=== PATIENT | female | born 1995 | race Two or more races ===

== ENCOUNTER → 2020-02-29 11:28 | Outpatient (BNVA) | payer OTHER, SELFPAY | PROVIDERS: PCP Internal Medicine; Referring Provider Internal Medicine; Visit Provider Advanced Practice Midwife | DX: Z30.09 Encounter for other general counseling and advice on contraception (principal) | CPT/HCPCS: 99212 ==

== ENCOUNTER 2020-03-09 10:28 | Outpatient (REF) | payer OTHER, SELFPAY | END 2020-03-09 10:29 | disposition home or self-care (01) | LOC: HO.LAB 10:28 | PROVIDERS: PCP Internal Medicine; Referring Provider Internal Medicine; Visit Provider Obstetrics & Gynecology | DX: R87.612 Low grade squamous intraepithelial lesion on cytologic smear of cervix (LGSIL) (principal) | CPT/HCPCS: 88305 ==

== ENCOUNTER 2020-03-11 17:01 | Emergency (ER) | payer OTHER, SELFPAY ==
[2020-03-11 19:37] VITALS: BP 129/64; PULSE 79; RESP 16; O2SAT 99; BMI 21.9
--- NOTE | 2020-03-11 19:46 | PC.NURSE ---
THIS RN AT BEDSIDE INDUSTRIAL MAINTENANCE MILLWRIGHT FOR PELVIC EXAM BY MARKUS BOGGS NP
[2020-03-11 20:00] VITALS: BP 114/63; PULSE 74; RESP 16; TEMP 36.6; O2SAT 100
[2020-03-11 20:08] LABS: Glucose Urine UA NEG (NEG); Leukocyte Esterase Urine NEG (NEG); Nitrite Urine NEG (NEG); Specific Gravity - Urine 1.025 (1.005-1.025); Urine Blood 2+ (NEG); Urine Ketones NEG (NEG); Urine Protein NEG (NEG-TRACE)
[2020-03-11 20:11] LABS: Appearance Urine CLEAR; Color Urine STRAW
[2020-03-11 20:12] LABS: UPreg QC Valid YES; Urine Pregnancy NEGATIVE (NEGATIVE)
[2020-03-11 20:22] LABS: WBC Urine 0 /HPF (0-4)
[2020-03-11 20:23] LABS: Squamous Epithelial Cell Urine 1+ /LPF
--- NOTE | 2020-03-11 20:25 | ED_ITS ---
HPI - Female Genitourinary General Chief complaint: OB <Ranjan Denny NP - Last Filed: 03/11/20 20:43> Stated complaint: VAGINAL ISSUES <Ranjan Denny NP - Last Filed: 03/11/20 20:43> Time Seen by Provider: 03/11/20 19:46 <Ranjan Denny NP - Last Filed: 03/11/20 20:43> Source: patient <Ranjan Denny NP - Last Filed: 03/11/20 20:43> Mode of arrival: ambulatory <Ranjan Denny NP - Last Filed: 03/11/20 20:43> Limitations: no limitations <Ranjan Denny NP - Last Filed: 03/11/20 20:43> History of Present Illness HPI Narrative: 25-year-old female who is status post Colposcopy on 03/09/2020 ( 2 days ago) for cervical lesions and yesterday she had episode of very slight disc harge x1 upon wiping. She <Ranjan Denny NP - Last Filed: 03/11/20 20:43> MD elicited complaint: vaginal discharge <Ranjan Denny NP - Last Filed: 03/11/20 20:43> Related Data Allergies/Adverse reactions: Allergies Allergy/AdvReac Type Severity Reaction Status Date / Time Penicillins [PENICILLINS] Allergy Intermediate RASH AND Verified 03/09/20 10:35 VOMITING <Ranjan Denny NP - Last Filed: 03/11/20 20:43> Review of Systems Review of Systems: Constitutional: No Weight loss, No Fever, No Chills, No Night Sweats, No Fatigue, No Malaise ENT/Mouth: No Hearing loss, No Ear Pain, No Nasal Congestion, No Sinus Pain, No Hoarseness, No sore throat, No Rhinorrhea, No Swallowing Difficulty Eyes: No Eye Pain, No Swelling, No Redness, No Foreign Body, No Discharge, No Vision Changes Cardiovascular: No Chest Pain, No SOB, No Dyspnea on Exertion, No Orthopnea, No Edema, No Palpitations Respiratory: No Cough, No Sputum, No Wheezing, No Smoke Exposure, No Dyspnea Gastrointestinal: No Nausea, No Vomiting, No Diarrhea, No Constipation, No abdominal Pain, No Hematochezia, No Melena Genitourinary: no irregular bleeding, No Dysuria, No Urinary Frequency, No Hematuria, No Urinary Incontinence, No Urgency, No Flank Pain, No Urinary Flow Changes, No Hesitancy Musculoskeletal: No joint pain, No Myalgias, No Joint Swelling Skin: No Skin Lesions, No rash Neuro: No Weakness, No Numbness, No Paresthesias, No Loss of Consciousness, No Dizziness, No Headache Psych: No Social Issues Heme/Lymph: No Bruising, No Bleeding,No Lymphadenopathy Endocrine: No Polyuria, No Polydipsia, No Temperature Intolerance <Ranjan Denny NP - Last Filed: 03/11/20 20:43> Yes all other systems are reviewed and are negative <Ranjan Denny NP - Last Filed: 03/11/20 20:43> PMF Past Medical History Attestation statement: The following information was validated with the patient. <Ranjan Denny NP - Last Filed: 03/11/20 20:43> Surgical History: Surgical History Hx of appendectomy <Ranjan Denny NP - Last Filed: 03/11/20 20:43> Family History Family History: Family History Father History of back problems History of depression History of anxiety Mother Hx of hepatitis Hx of pancreatitis History of mental problems Maternal Grandmother Hx of diabetes mellitus Family hx of hypertension Family/Other Hx of cancer of uterus <Ranjan Denny NP - Last Filed: 03/11/20 20:43> Social History Social History: Social History Alcohol intake: never Smoking Status: Never smoker Advance Directives: No Advance Directives Information Provided: Yes Gender identity: female <Ranjan Denny NP - Last Filed: 03/11/20 20:43> Physical Exam Vital Signs: Vital Signs: Vital Signs Temp Pulse Resp BP Pulse Ox 03/11/20 20:00 97.8 F 74 16 114/63 100 03/11/20 19:37 79 16 129/64 99 Body Mass Index 21.9 Reviewed <Ranjan Denny NP - Last Filed: 03/11/20 20:43> Vital Signs: Vital Signs Temp Pulse Resp BP Pulse Ox 03/11/20 20:00 97.8 F 74 16 114/63 100 03/11/20 19:37 79 16 129/64 99 Body Mass Index 21.9 <Ramesh Sosa MD - Last Filed: 03/12/20 00:32> Const: General: cooperative and healthy appearing; No acute distress or intoxicated appearing <[facility] DAVE Denny - Last Filed: 03/11/20 20:43> Nutritional Appearance: average body habitus <[facility] DAVE Denny - Last Filed: 03/11/20 20:43> Orientation/consciousness: patient oriented x3 <[facility] Denisha - Last Filed: 03/11/20 20:43> HENMT: Head: Yes normal to inspection <[facility] DAVE Denny - Last Filed: 03/11/20 20:43> Ears: hearing grossly normal bilaterally <[facility] Denisha - Last Filed: 03/11/20 20:43> Eyes: General: appearance normal, both eyes and all related structures <Aby Denny NP - Last Filed: 03/11/20 20:43> Visual Lozada: normal visual lozada by confrontation <[facility] Denisha [employer] SUPERVIS[employer] - Last Filed: 03/11/20 20:43> Neck: Neck: Yes normal visual inspection and No tender <[facility] DAVE Denny - Last Filed: 03/11/20 20:43> Thyroid: Thyroid normal <[facility] Denisha [employer] SUPERVISOR - Last Filed: 03/11/20 20:43> Chest: Chest palpation & inspection: normal inspection of the chest <[facility] DAVE Denny - Last Filed: 03/11/20 20:43> Resp: Effort & Inspection: normal respiratory effort <[facility] DAVE Denny - Last Filed: 03/11/20 20:43> Cardio: Jugular venous distension: no JVD <[facility] DAVE Denny - Last Filed: 03/11/20 20:43> GI: Inspection: Yes normal to inspection <[facility] DAVE Denny - Last Filed: 03/11/20 20:43> Percussion: Yes normal to percussion <[facility] DAVE Denny - Last Filed: 03/11/20 20:43> Auscultation: normal bowel sounds <[facility] DAVE Denny - Last Filed: 03/11/20 20:43> : Other: tamanna Gomez RN present <[facility] DAVE Denny - Last Filed: 03/11/20 20:43> General: Yes no CVA tenderness <[facility] DAVE Denny - Last Filed: 03/11/20 20:43> External Female Exam: normal external appearance <[facility] Denisha [employer] SUPERVISOR - Last Filed: 03/11/20 20:43> Speculum Exam - Vagina: normal appearance of the vagina, normal palpation, normal vaginal discharge and lesion <[facility] DAVE Denny - Last Filed: 03/11/20 20:43> Speculum Exam - Cervix: normal appearance of the cervix and normal palpation <[facility] DAVE Denny - Last Filed: 03/11/20 20:43> Bimanual exam- vagina & uterus: normal palpation and normal palpation <[facility] Denisha [employer] SUPERVISOR - Last Filed: 03/11/20 20:43> Back/Spine/Pelvis: Back: no CVA tenderness <[facility] DAVE Denny - Last Filed: 03/11/20 20:43> Skin: General skin exam: no rashes or lesions noted <[facility] DAVE Denny - Last Filed: 03/11/20 20:43> Neuro: General: patient oriented x3 <[facility] DAVE Denny - Last Filed: 03/11/20 20:43> Extrem: General: Yes normal to inspection <[facility] DAVE Denny - Last Filed: 03/11/20 20:43> Course Course Course Narrative: I have reviewed the chart <Ramesh Sosa MD - Last Filed: 03/12/20 00:32> MDM - Female Genitourinary MDM Narrative Medical decision making narrative: slight discharge consistent with dry blood anticipated after biopsy. Vaginal bowl examination reveals no further discharge or bleeding. UA reveals no acute infection. Next negative. No concern for STI. Referred to her case loader operator. Reassurance/precautions provided. No evidence of infectious pathology/PID. <[facility] DAVE Denny - Last Filed: 03/11/20 20:43> Differential Diagnosis Differential diagnosis: Likely urinary tract infection, bacterial vaginosis, trichomoniasis, cervicitis and vaginitis; Unlikely ovarian cyst, ruptured ovarian cyst, cyst of Bartholin's gland, cystitis and dysmenorrhea <Ranjan Denny NP - Last Filed: 03/11/20 20:43> Medical Records Attestation: I reviewed the patient's medical records. <Ranjan Denny NP - Last Filed: 03/11/20 20:43> Medical records narrative: office note reviewed from the 27 of February when she was started on Depo Office note reviewed from the where she had biopsy <Ranjan Denny NP - Last Filed: 03/11/20 20:43> Lab Data Labs: Lab Results 03/11/20 Range/Units 19:50 Urine Color STRAW Urine Appearance CLEAR Urine pH 6.0 (5.0-8.0) Ur Specific [place] 1.025 (1.005-1.025) Urine Protein NEG (NEG-TRACE) MG/DL Urine Glucose (UA) NEG (NEG) MG/DL Urine Ketones NEG (NEG) MG/DL Urine Blood 2+ H (NEG) Urine Nitrite NEG (NEG) Ur Leukocyte Esterase NEG (NEG) Urine RBC 15-29 H (0) /HPF Urine WBC 0 (0-4) /HPF Ur Squamous Epith Cells 1+ /LPF Urine Bacteria NONE /LPF Urine Test NEGATIVE (NEGATIVE) <Ranjan Denny NP - Last Filed: 03/11/20 20:43> Lab Results 03/11/20 Range/Units 19:50 Urine Color STRAW Urine Appearance CLEAR Urine pH 6.0 (5.0-8.0) Ur Specific [place] 1.025 (1.005-1.025) Urine Protein NEG (NEG-TRACE) MG/DL Urine Glucose (UA) NEG (NEG) MG/DL Urine Ketones NEG (NEG) MG/DL Urine Blood 2+ H (NEG) Urine Nitrite NEG (NEG) Ur Leukocyte Esterase NEG (NEG) Urine RBC 15-29 H (0) /HPF Urine WBC 0 (0-4) /HPF Ur Squamous Epith Cells 1+ /LPF Urine Bacteria NONE /LPF Urine Test NEGATIVE (NEGATIVE) <Ramesh Sosa MD - Last Filed: 03/12/20 00:32> Discharge Plan Discharge Clinical Impression: Vaginal discharge <Ranjan Denny NP - Last Filed: 03/11/20 20:43> Patient Disposition: Home, Self-Care <Ranjan Denny NP - Last Filed: 03/11/20 20:43> Instructions: Vaginal Discharge (ED) <Ranjan Denny NP - Last Filed: 03/11/20 20:43> Additional Instructions: the 1 episode of discharge you had was normal and very small amount of blood that is to be expected after biopsy. On examination there is no more discharge. Please continue to follow-up with the case loader operator team. return if any concerns or worsening symptoms Thank you <Ranjan Denny NP - Last Filed: 03/11/20 20:43> Referrals: Fede Branch MD [Physician] - 1 week <Ranjan Denny NP - Last Filed: 03/11/20 20:43> Interventions: ED Discharge Assessment Last Done: 03/11/20 20:45 <Ranjan Denny NP - Last Filed: 03/11/20 20:43> Discharge Date/Time: 03/11/20 20:45 <Ranjan Denny NP - Last Filed: 03/11/20 20:43>
--- NOTE | 2020-03-11 20:38 | PC.NURSE ---
NEGATIVE WORKUP, PT AWAITING DC HOME.
== END 2020-03-11 20:45 | disposition home or self-care (01) ==
PROVIDERS: Nurse Practitioner Primary Care; Emergency Provider Emergency Medicine; PCP Internal Medicine
DX: N89.8 Other specified noninflammatory disorders of vagina (principal)
CPT/HCPCS: 81001; 81003; 81025; 99283; 99284

== ENCOUNTER 2020-03-24 14:51 | Outpatient (REF) | payer OTHER, SELFPAY ==
[2020-03-25 09:00] LABS: CT PCR NOT DETECTED (Not Detect.); NG PCR NOT DETECTED (Not Detect.)
[2020-03-25 10:34] LABS: BV Int Neg Control Negative (Negative); BV Int Pos Control Positive (Positive)
== END 2020-03-24 14:52 | disposition home or self-care (01) ==
LOC: HO.LAB 14:51
PROVIDERS: Visit Provider Obstetrics & Gynecology
DX: N73.0 Acute parametritis and pelvic cellulitis (principal); N89.8 Other specified noninflammatory disorders of vagina; R10.2 Pelvic and perineal pain
CPT/HCPCS: 81002; 81025; 87480; 87491; 87510; 87591; 87660; 99212

== ENCOUNTER 2020-04-06 14:26 | Outpatient (REF) | payer OTHER, SELFPAY ==
[2020-04-07 08:19] LABS: BV Int Neg Control Negative (Negative); BV Int Pos Control Positive (Positive)
== END 2020-04-06 14:27 | disposition home or self-care (01) ==
LOC: HO.LNP 14:26
PROVIDERS: Visit Provider Obstetrics & Gynecology
DX: B37.3 Candidiasis of vulva and vagina (principal); N73.0 Acute parametritis and pelvic cellulitis
CPT/HCPCS: 87480; 87510; 87660; 99212

== ENCOUNTER → 2020-05-30 09:35 | Outpatient (BNVA) | payer OTHER, SELFPAY | PROVIDERS: Visit Provider Obstetrics & Gynecology | DX: Z30.09 Encounter for other general counseling and advice on contraception (principal) | CPT/HCPCS: 99212 ==

== ENCOUNTER 2020-09-15 10:21 | Outpatient (REF) | payer OTHER, SELFPAY ==
[2020-09-15 15:20] LABS: CT PCR NOT DETECTED (Not Detect.); NG PCR NOT DETECTED (Not Detect.)
[2020-09-16 08:52] LABS: BV Int Neg Control Negative (Negative); BV Int Pos Control Positive (Positive)
== END 2020-09-15 10:22 | disposition home or self-care (01) ==
LOC: HO.LAB 10:21
PROVIDERS: PCP Internal Medicine; Visit Provider Obstetrics & Gynecology
DX: N76.0 Acute vaginitis (principal); R10.2 Pelvic and perineal pain; B96.89 Other specified bacterial agents as the cause of diseases classified elsewhere; Z30.9 Encounter for contraceptive management, unspecified
CPT/HCPCS: 87480; 87491; 87510; 87591; 87660; 99212

== ENCOUNTER 2020-09-26 13:05 | Outpatient (REF) | payer OTHER, SELFPAY ==
--- NOTE | ~2020-09-26 | US_ITS ---
EXAMINATION: US PELVIS COMPLETE CLINICAL INFORMATION: Pelvic and perineal pain. COMPARISON: None. TECHNIQUE: Transabdominal imaging of pelvis is performed. FINDINGS: The uterus is anteverted and anteflexed measuring 7.7 cm in length, 3.6 cm in AP and 4.4 cm in transverse dimension. No focal lesions seen. The endometrium is homogeneous in thickness measuring 0.7 cm. Right ovary measures 3.6 x 2.4 x 1.9 cm and volume 8.6 mL. It appears unremarkable. Left ovary measures 3.2 x 2.5 x 1.7 cm and volume 7.1 mL. It appears unremarkable. There is trace amount of free fluid in the cul-de-sac. US/US transvaginal IMPRESSION: Unremarkable uterus and ovaries. Trace free fluid in the cul-de-sac.
--- NOTE | ~2020-09-26 | US_ITS ---
EXAMINATION: US PELVIS COMPLETE CLINICAL INFORMATION: Pelvic and perineal pain. COMPARISON: None. TECHNIQUE: Transabdominal imaging of pelvis is performed. FINDINGS: The uterus is anteverted and anteflexed measuring 7.7 cm in length, 3.6 cm in AP and 4.4 cm in transverse dimension. No focal lesions seen. The endometrium is homogeneous in thickness measuring 0.7 cm. Right ovary measures 3.6 x 2.4 x 1.9 cm and volume 8.6 mL. It appears unremarkable. Left ovary measures 3.2 x 2.5 x 1.7 cm and volume 7.1 mL. It appears unremarkable. There is trace amount of free fluid in the cul-de-sac. US/US pelvic complete IMPRESSION: Unremarkable uterus and ovaries. Trace free fluid in the cul-de-sac.
== END 2020-09-26 13:06 | disposition home or self-care (01) ==
LOC: HO.US 13:05
PROVIDERS: Visit Provider Obstetrics & Gynecology
DX: R10.2 Pelvic and perineal pain (principal)
CPT/HCPCS: 76830; 76856

== ENCOUNTER → 2020-10-03 13:49 | Outpatient (BNVA) | payer OTHER, SELFPAY | PROVIDERS: PCP Internal Medicine; Visit Provider Obstetrics & Gynecology ==

== ENCOUNTER 2020-11-16 17:42 | Emergency (ER) | payer OTHER, SELFPAY ==
[2020-11-16 17:58] VITALS: BP 126/67; PULSE 96; RESP 18; TEMP 36.7; O2SAT 99; BMI 23.7
[2020-11-16] MEDS: Tranexamic Acid 1,000 MG in 0.9 % Sodium Chloride 50 ML 360 MG IV (18:47)
--- NOTE | 2020-11-16 18:47 | ED_ITS ---
HPI - General Adult General Chief complaint: General Medical Stated complaint: Post Op bleeding Time Seen by Provider: 11/16/20 18:14 Source: patient, family and life [employer] Mode of arrival: ambulatory Limitations: language barrier History of Present Illness HPI narrative: 25-year-old female here with dental bleeding. The patient had 3 wisdom teeth removed this morning at 11:00 at [facility] dental [facility] emil[facility]. She is here as 1 site has continued to bleed despite holding pressure. She denies any history of bleeding disorders. No anticoagulation use. Related Data Previous Rx's Medication Instructions Recorded clotrimazole-betamethasone 1 1 applic TOPICAL BID 5 Days #45 g 04/06/20 %-0.05 % topical cream terconazole 0.8 % vaginal cream 1 appful VAGINAL BEDTIME 3 Days 04/06/20 #20 g naproxen 500 mg tablet 500 mg PO ONCE PRN 30 Days #7 tab 05/31/20 sumatriptan succinate 50 mg tablet 50 mg PO ONCE PRN 30 Days #7 tab 05/31/20 cyclobenzaprine 5 mg tablet 5 mg PO BEDTIME 7 Days #7 tab 07/05/20 desogestrel 0.15 mg-ethinyl 1 tab PO DAILY 28 Days #28 tab 09/15/20 estradiol 0.03 mg tablet metronidazole 0.75 % vaginal gel 1 appful VAGINAL BEDTIME 5 Days 09/15/20 #37.5 g Allergies Allergy/AdvReac Type Severity Reaction Status Date / Time Penicillins [PENICILLINS] Allergy Intermediate RASH AND Verified 10/03/20 13:55 VOMITING Review of Systems Review of Systems: Yes all other systems are reviewed and are negative Constitutional: Constitutional: Reports no additional constitutional complaint s, Denies body ache(s), Denies chills, Denies fever(s), Denies headache(s) and Denies weakness Eyes: Eyes: Reports no additional eye complaints and Denies change in vision ENT: Reports system reviewed and no additional complaints, except as documented, Denies dizziness, Denies headache(s), Denies nasal congestion, Denies nasal discharge and Denies neck pain Comments: Dental bleeding Cardiovascular: Cardiovascular: Reports no additional cardiovascular complaints, Denies chest pain, Denies leg edema and Denies dyspnea Respiratory: Respiratory: Reports no additional respiratory complaints, Denies cough and Denies dyspnea Gastrointestinal: Gastrointestinal: Reports no additional gastrointestinal complaints, Denies abdominal pain, Denies diarrhea, Denies nausea and Denies vomiting Genitourinary: Genitourinary: Reports no additional female genitourinary complaints and Denies urinary incontinence Musculoskeletal: Musculoskeletal: Reports no additional musculoskeletal complaints, Denies back pain, Denies arthralgias, Denies joint swelling, Denies neck pain, Denies numbness and Denies tingling Integumentary/Breasts: Skin/Breast: Reports system reviewed and no additional complaints, except as docu and Denies rash Neurologic: Reports system reviewed and no additional complaints, except as documented, Denies Abnormal speech present, Denies dizziness, Denies headache(s), Denies numbness, Denies tingling and Denies weakness PMFSH Past Medical History Attestation statement: The following information was validated with the patient. Source: old records reviewed and nursing notes reviewed Surgical History Hx of appendectomy [place] teeth extracted Family History Family History Father History of back problems History of depression History of anxiety Mother Hx of hepatitis Hx of pancreatitis History of mental problems Maternal Grandmother Hx of diabetes mellitus Family hx of hypertension Family/Other Hx of cancer of uterus Social History Social History Alcohol intake: never Patient Tobacco Use Status: Never used Tobacco Advance Directives: No Advance Directives Information Provided: Yes Patient : No Sexual orientation: Straight/Heterosexual Gender identity: female Physical Exam Vital Signs: Vital Signs: Last Vital Signs Temp 98.4 F 11/16/20 21:50 Pulse 79 11/16/20 21:50 Resp 16 11/16/20 21:50 BP 120/73 11/16/20 21:50 Pulse Ox 99 11/16/20 21:50 Body Mass Index 23.7 Const: General: cooperative, healthy appearing, comfortable and no acute distress Orientation/consciousness: patient oriented x3 Limitations: no limitations HENMT: Head: Yes normal to inspection Ears: hearing grossly normal bilaterally General nose exam: Normal external nose present Face and sinu s: Yes normal facial exam Mouth: Normal oral and palatal mucosa present Teeth image: 1. Sutures noted no active bleeding 2. Sutures noted not active bleeding 3. Sutures noted. Large blood clot with active bleeding noted Throat: Yes posterior oropharynx normal Eyes: General: appearance normal, both eyes and all related structures Pupils: Equal, round and reactive pupils present Neck: Neck: Yes normal visual inspection Chest: Chest palpation & inspection: normal inspection of the chest Resp: Effort & Inspection: normal respiratory effort Auscultation: clear to auscultation bilaterally Cardio: Rate: regular rate Rhythm: regular rhythm Peripheral pulses: Peripheral pulses 2+ throughout GI: Inspection: Yes normal to inspection Palpation (GI): Soft to palpation and nontender Auscultation: normal bowel sounds Back/Spine/Pelvis: Thoracic/Lumbar Spine: thoracic and lumbar spine normal to inspection Skin: General skin exam: no rashes or lesions noted Neuro: General: patient oriented x3, no focal motor deficits and normal sensation to monofilament Cranial nerves: Yes Equal, round and reactive pupils present Cognition (Neuro): normal cognition Speech: No Abnormal speech present Gait exam (Neuro): Normal gait present Motor exam (neuro): 5/5 motor strength present throughout Extrem: General: Yes normal to inspection Course Course Course Narrative: 25-year-old female here with bleeding from her wisdom tooth extraction site to the left upper gum line after excision today at 11:00. Bleeding noted from a large blood clot at this site with sutures present. TXA applied with direct pressure after clot was evacuated. -30 minutes later after re-evaluation continued bleeding. TXA reapplied to site. -30 minutes later re-evaluation with Dr. Amezcua at bedside with continued bleeding although improving. TXA reapplied. -30 minutes later re-evaluation with Dr. Amezcua the bedside with continued bleeding although improving. dental hem con applied to site with surgicel over this with direct pressure. -30 minutes later re-evaluation with Dr. Amezcua the bedside with no active bleeding noted. Will monitor in the ER for brief time prior to discharge. -re-evaluated patient approximately 20 minutes later with no active bleeding. After discussion with Dr. Amezcua decision was made to keep the current dressing in place and have the patient follow up with the dental clinic in the morning. Reviewed worrisome signs and symptoms and when to return to the emergency department. Comfortable discharge home. Critical Care Time Critical Care Time Critical Care Time: Yes Total Critical Care Time: 60 Attestation: Multiple re-evaluations for bleeding site with interventions applied Discharge Plan Discharge Clinical Impression: Surgical wound hemorrhage after dental procedure Patient Disposition: Home, Self-Care Instructions: Postoperative Bleeding (ED) Additional Instructions: Small sips only tonight Sleep with head prepped You need to see dental tomorrow morning first thing Prescriptions: No Action cyclobenzaprine 5 mg tablet 5 mg PO BEDTIME 7 Days Qty: 7 RF: 0 sumatriptan succinate 50 mg tablet 50 mg PO ONCE PRN (Reason: migraine headache) 30 Days Qty: 7 RF: 0 naproxen 500 mg tablet 500 mg PO ONCE PRN (Reason: pain) 30 Days Qty: 7 RF: 0 terconazole 0.8 % cream 1 appful vaginal BEDTIME 3 Days Qty: 20 RF: 0 clotrimazole-betamethasone 1-0.05 % cream 1 applic topical BID 5 Days Qty: 45 RF: 0 metronidazole 0.75 % gel 1 appful vaginal BEDTIME 5 Days Qty: 37.5 RF: 0 desogestrel-ethinyl estradiol [Apri] 0.15-0.03 mg tablet 1 tab PO DAILY 28 Days Qty: 28 RF: 11 Referrals: Physician,Unknown [Primary Care Provider] - 2 days Interventions: ED Discharge Assessment Last Done: 11/16/20 22:30 Discharge Date/Time: 11/16/20 22:31 Print Language: Romansh
[2020-11-16 19:32] VITALS: BP 121/65; PULSE 78; RESP 16; O2SAT 99
--- NOTE | 2020-11-16 19:40 | PC.NURSE ---
REPORT TAKEN FROM TEJA WOODS, FIRST CONTACT WITH PT. SITTING UP IN BED SKIN PWD RESPIRATIONS EVEN UNLABORED, TSA SOAKED GAUZE IN MOUTH. BLEEDING APPEARS TO HAVE SLOWED. VSS. AWAITING IMPROVEMENT IN SYMPTOMS AND ACID CONCENTRATOR REEVAL.
[2020-11-16] MEDS: Morphine Sulfate 2 MG/ML CARTRIDGE IM (19:47)
[2020-11-16 20:17] VITALS: BP 120/77; PULSE 72; RESP 16; TEMP 36.6; O2SAT 98
[2020-11-16 21:50] VITALS: BP 120/73; PULSE 79; RESP 16; TEMP 36.9; O2SAT 99
== END 2020-11-16 22:31 | disposition home or self-care (01) ==
PROVIDERS: Emergency Provider Emergency Medicine
DX: K91.840 Postprocedural hemorrhage of a digestive system organ or structure following a digestive system procedure (principal); Y83.8 Other surgical procedures as the cause of abnormal reaction of the patient, or of later complication, without mention of misadventure at the time of the procedure; Y92.9 Unspecified place or not applicable
CPT/HCPCS: 96372; 96374; 99284; J2270

== ENCOUNTER 2020-11-20 10:42 | Emergency (ER) | payer OTHER, SELFPAY ==
[2020-11-20 10:53] VITALS: BP 130/70; PULSE 107; RESP 17; TEMP 36.8; O2SAT 96; BMI 18.8
--- NOTE | 2020-11-20 11:18 | ED.GENADULT ---
HPI - General Adult General Chief complaint: General Medical Stated complaint: MOUTH SWOLLEN DENTAL ISSUES WEAK Time Seen by Provider: 11/20/20 11:00 Source: patient and family Mode of arrival: ambulatory Limitations: no limitations History of Present Illness HPI narrative: 25 y/o female with recent wisdom tooth extraction on 11/16 who presents to the ER with poor PO intake, headache, nausea and ongoing right sided jaw/mouth pain. She has not been able to eat since the procedure. She feels dehydrated. She states the pain is slowly improving and she has been compliant with her antibiotics and taking Motrin as needed. She denies vomiting, fever, chills, or recurrent bleeding. She was seen here in the ER a few hours after the extraction on 11/16 and required multiple rounds of topical TXA for active bleeding. MD complaint: mouth pain + dehydration Onset (ago): day(s) (4) Location: head and face Radiation: non-radiation Severity: moderate Severity scale (1-10): 6 Quality: aching Pain Consistency: constant Relieving factors: cold therapy and medication Exacerbating factors: eating Associated symptoms: loss of appetite, malaise, nausea/vomiting and weakness Treatments prior to arrival: none Related Data Previous Rx's Medication Instructions Recorded clotrimazole-betamethasone 1 1 applic TOPICAL BID 5 Days #45 g 04/06/20 %-0.05 % topical cream terconazole 0.8 % vaginal cream 1 appful VAGINAL BEDTIME 3 Days 04/06/20 #20 g naproxen 500 mg tablet 500 mg PO ONCE PRN 30 Days #7 tab 05/31/20 sumatriptan succinate 50 mg tablet 50 mg PO ONCE PRN 30 Days #7 tab 05/31/20 cyclobenzaprine 5 mg tablet 5 mg PO BEDTIME 7 Days #7 tab 07/05/20 desogestrel 0.15 mg-ethinyl 1 tab PO DAILY 28 Days #28 tab 09/15/20 estradiol 0.03 mg tablet metronidazole 0.75 % vaginal gel 1 appful VAGINAL BEDTIME 5 Days 09/15/20 #37.5 g Allergies Allergy/AdvReac Type Severity Reaction Status Date / Time Penicillins [PENICILLINS] Allergy Intermediate RASH AND Verified 10/03/20 13:55 VOMITING Review of Systems Review of Systems: Constitutional: No Fever, No Chills ENT/Mouth: No sore throat, No Rhinorrhea, + Swallowing Difficulty Cardiovascular: No Chest Pain, No SOB, No Orthopnea, No Edema Respiratory: No Cough, No Sputum, No Wheezing, No dyspnea Gastrointestinal: No Nausea, No Vomiting, No Diarrhea, No abdominal Pain, No Hematochezia, No Melena Genitourinary: No Dysuria, No Urinary Frequency, No Hematuria Musculoskeletal: No joint pain, No Myalgias Skin: No Skin Lesions, No rash Neuro: No Weakness, No Numbness, No Dizziness, No Headache Psych: No Anxiety/Panic, No Depression Heme/Lymph: No Bruising, No Lymphadenopathy Endocrine: No Polyuria, No Polydipsia PMFSH Past Medical History Surgical History Hx of appendectomy [place] teeth extracted Family History Family History Father History of back problems History of depression History of anxiety Mother Hx of hepatitis Hx of pancreatitis History of mental problems Maternal Grandmother Hx of diabetes mellitus Family hx of hypertension Family/Other Hx of cancer of uterus Social History Social History Alcohol intake: never Patient Tobacco Use Status: Never used Tobacco Advance Directives: No Advance Directives Information Provided: No Patient : No Sexual orientation: Straight/Heterosexual Gender identity: female Physical Exam Vital Signs: Vital Signs: Last Vital Signs Temp 98.2 F 11/20/20 10:53 Pulse 107 H 11/20/20 10:53 Resp 17 11/20/20 10:53 BP 130/70 11/20/20 10:53 Pulse Ox 96 11/20/20 10:53 Body Mass Index 18.8 Appearance: Alert. Oriented X3. No acute distress. Head/face: right facial and mandibular swelling, moderate, no erythema. Eyes: Pupils equal, round and reactive to light. ENT: pain with opening of jaw, no active bleeding, sites are healing appropriately Neck: Normal inspection. no LAD CVS: Normal heart rate and rhythm. Pulses normal. Respiratory: No respiratory distress. Breath sounds normal. Abdomen: Soft and nontender. +BS x4 Skin: Skin warm and dry. Normal skin color. Normal skin turgor. No rashes. Extremities: No lower extremity edema. Neuro: Oriented X 3. No motor deficit. No sensory deficit. Course Course Course Narrative: 25 y/o female presenting POD #4 from wisdom tooth extraction with poor PO intake, headache, nausea and continued pain. She is concerned about dehydration and asking for IVF. She has been drinking adequately but unable to eat. Will check basic labs to assess for dehydration and give IVF and Toradol, did not take her Motrin yet today. Reevaluation(s) Reevaluation #1: Labs are unremarkable. Patient is feeling better s/p 2L IVF and toradol. Having ice chips. She is stable for d/c home. Medical Decision Making Lab Data Result diagrams: 11/20/20 11:22 11/20/20 11:22 Labs: Lab Results 11/20/20 11/20/20 Range/Units 11:22 11:22 WBC 8.5 (4.8-10.8) X10*3/uL RBC 4.90 (4.20-5.50) X10*6/uL Hgb 13.9 (12.0-16.0) g/dl Hct 40.5 (37-47) % MCV 82.7 (80-98) fL MCH 28.4 (27.0-33.0) pg MCHC 34.3 (31.0-35.0) g/dl RDW 12.5 (11.0-16.0) % Plt Count 462 H (160-400) X10*3/uL MPV 9.5 (9.4-12.3) fL Immature Gran % (Auto) 0.4 (0.0-0.4) % Neut % (Auto) 80.6 H (45-73) % Lymph % (Auto) 12.7 L (20-40) % [place] % (Auto) 5.7 (2-11) % Eos % (Auto) 0.2 (0-4) % Baso % (Auto) 0.4 (0-2) % Lymph # (Auto) 1.1 L (1.2-4.9) X10*3/uL [place] # (Auto) 0.5 (0.1-1.2) X10*3/uL Eos # (Auto) 0.0 (0.0-0.4) X10*3/uL Baso # (Auto) 0.0 (0.0-0.2) X10*3/uL Abs Immat Gran (auto) 0.03 (0.00-0.03) X10*3/uL Absolute Neuts (auto) 6.8 (2.0-8.3) X10*3/uL Absolute Nucleated RBC 0.000 (0.0-0.012) X10*3/uL Nucleated RBC % (auto) 0.0 (0.0-0.2) /100WBC Sodium 140 (135-145) mmol/L Potassium 4.0 (3.3-5.1) mmol/L Chloride 102 (96-108) mmol/L Carbon Dioxide 28 (22-29) mmol/L Anion Gap 14 (12-20) BUN 13 (9-16) mg/dL Creatinine 0.67 (0.5-1.4) mg/dL Estim Creat Clear Calc 101.9 Estimated GFR > 60 Random Glucose 86 (60-115) mg/dL Calcium 9.4 (8.4-10.2) mg/dL Discharge Plan Discharge Clinical Impression: [place] teeth extracted Qualifiers: Tooth loss class: unspecified tooth loss Qualified Code(s): K08.409 - Partial loss of teeth, unspecified cause, unspecified class Patient Disposition: Home, Self-Care Instructions: Tooth Extraction (DC) Additional Instructions: Your lab workup today was normal, no evidence of dehydration. Continue taking Motrin as needed for pain. Use ice to your face/jaw several times per day. Continue to drink liquids to stay hydrated. Recommend trial of soft foods as well. Follow up with your dentist. If you have worsening pain or any other concerning symptoms come back to the ER for further evaluation. Prescriptions: No Action cyclobenzaprine 5 mg tablet 5 mg PO BEDTIME 7 Days Qty: 7 RF: 0 sumatriptan succinate 50 mg tablet 50 mg PO ONCE PRN (Reason: migraine headache) 30 Days Qty: 7 RF: 0 naproxen 500 mg tablet 500 mg PO ONCE PRN (Reason: pain) 30 Days Qty: 7 RF: 0 terconazole 0.8 % cream 1 appful vaginal BEDTIME 3 Days Qty: 20 RF: 0 clotrimazole-betamethasone 1-0.05 % cream 1 applic topical BID 5 Days Qty: 45 RF: 0 metronidazole 0.75 % gel 1 appful vaginal BEDTIME 5 Days Qty: 37.5 RF: 0 desogestrel-ethinyl estradiol [Apri] 0.15-0.03 mg tablet 1 tab PO DAILY 28 Days Qty: 28 RF: 11
[2020-11-20] MEDS: 0.9 % Sodium Chloride 1,000 ML 999 ML IVCONT ×2 (11:23→12:15)
[2020-11-20] MEDS: Ketorolac Tromethamine 30 MG/ML VIAL IVPUSH (11:26)
[2020-11-20] MEDS: ondansetron HCL 4 MG/2 ML VIAL IVPUSH (11:26)
[2020-11-20 11:27] LABS: MANUAL DIFF FLAG NO
[2020-11-20 11:31] LABS: Basophils Percent Auto 0.4 % (0-2); Eosinophils Percent Auto 0.2 % (0-4); Hematocrit 40.5 % (37-47); Hemoglobin 13.9 g/dl (12.0-16.0); Imm Gran Abs Auto 0.03 X10*3/uL (0.00-0.03); Imm Gran Pct Auto 0.4 % (0.0-0.4); Lymphocytes Absolute Auto 1.1 X10*3/uL (1.2-4.9); Lymphocytes Percent Auto 12.7 % (20-40); Mean Corpuscular HGB Conc 34.3 g/dl (31.0-35.0); Mean Corpuscular Hemoglobin 28.4 pg (27.0-33.0); Mean Corpuscular Volume 82.7 fL (80-98); Mean Platelet Volume 9.5 fL (9.4-12.3); Monocytes Absolute Auto 0.5 X10*3/uL (0.1-1.2); Monocytes Percent Auto 5.7 % (2-11); Neutrophils Absolute Auto 6.8 X10*3/uL (2.0-8.3); Neutrophils Percent Auto 80.6 % (45-73); Platelet Count 462 X10*3/uL (160-400); Red Cell Distribution Width 12.5 % (11.0-16.0); White Blood Count 8.5 X10*3/uL (4.8-10.8)
[2020-11-20 11:54] LABS: Anion Gap 14 (12-20); Blood Urea Nitrogen 13 mg/dL (9-16); Calcium 9.4 mg/dL (8.4-10.2); Carbon Dioxide 28 mmol/L (22-29); Chloride 102 mmol/L (96-108); Creatinine Clr Calc Pharmacy 101.9; Estimated Glomerular Filt Rate > 60; Glucose Random 86 mg/dL (60-115); Sodium 140 mmol/L (135-145)
[2020-11-20 13:18] VITALS: RESP 17
== END 2020-11-20 13:36 | disposition home or self-care (01) ==
PROVIDERS: Physician Assistant; Emergency Provider Emergency Medicine; PCP Internal Medicine
DX: K08.409 Partial loss of teeth, unspecified cause, unspecified class (principal)
CPT/HCPCS: 36415; 80048; 85025; 96361; 96374; 96375; 99283; 99284; J1885; J2405

== ENCOUNTER 2021-03-27 09:47 | Outpatient (REF) | payer OTHER, SELFPAY ==
[2021-03-27 14:38] LABS: CT PCR NOT DETECTED (Not Detect.); NG PCR NOT DETECTED (Not Detect.)
== END 2021-03-27 09:48 | disposition home or self-care (01) ==
LOC: HO.LAB 09:47
PROVIDERS: PCP Internal Medicine; Visit Provider Obstetrics & Gynecology
DX: Z01.411 Encounter for gynecological examination (general) (routine) with abnormal findings (principal); Z11.3 Encounter for screening for infections with a predominantly sexual mode of transmission; R87.612 Low grade squamous intraepithelial lesion on cytologic smear of cervix (LGSIL)
CPT/HCPCS: 87491; 87591; 88142

== ENCOUNTER 2021-06-22 11:11 | Outpatient (REF) | payer OTHER, SELFPAY ==
[2021-06-22 13:45] LABS: MANUAL DIFF FLAG NO
[2021-06-22 13:48] LABS: Basophils Percent Auto 0.4 % (0-2); Eosinophils Percent Auto 0.6 % (0-4); Hematocrit 38.9 % (37.0-47.0); Imm Gran Abs Auto 0.03 X10*3/uL (0.00-0.03); Imm Gran Pct Auto 0.4 % (0.0-0.4); Lymphocytes Absolute Auto 1.8 X10*3/uL (1.2-4.9); Lymphocytes Percent Auto 25.8 % (20-40); Mean Corpuscular HGB Conc 33.4 g/dl (31.0-35.0); Mean Corpuscular Volume 83.8 fL (80.0-98.0); Mean Platelet Volume 10.7 fL (9.4-12.3); Monocytes Absolute Auto 0.4 X10*3/uL (0.1-1.2); Monocytes Percent Auto 5.2 % (2-11); Neutrophils Absolute Auto 4.6 x10*3/uL (2.0-8.3); Neutrophils Percent Auto 67.6 % (45-73); Platelet Count 487 X10*3/uL (160-400); Red Blood Count 4.64 X10*6/uL (4.20-5.50); Red Cell Distribution Width 13.2 % (11.0-16.0); White Blood Count 6.8 X10*3/uL (4.8-10.8)
[2021-06-22 14:17] LABS: Alanine Aminotransferase 12 U/L (0-31); Albumin Level 4.3 g/dL (3.5-5.0); Alkaline Phosphatase 84 U/L (39-117); Anion Gap 9 (12-20); Aspartate Amino Transferase 14 U/L (5-31); Bilirubin Total 0.4 mg/dL (0.0-1.0); Blood Urea Nitrogen 12 mg/dL (9-16); Calcium 9.5 mg/dL (8.4-10.2); Carbon Dioxide 30 mmol/L (22-29); Chloride 104 mmol/L (96-108); Cholesterol 214 mg/dL; Estimated Glomerular Filt Rate > 60; Glucose Fasting 92 mg/dL (60-99); HDL Cholesterol 44 mg/dL; LDL Cholesterol Calculated 148 mg/dl; Potassium 4.7 mmol/L (3.3-5.1); Sodium 138 mmol/L (135-145); Total Protein 7.4 g/dL (6.5-8.0); Triglycerides 113 mg/dL
[2021-06-22 14:21] LABS: TSH reflex Free T4 0.42 uIU/mL (0.32-4.0)
[2021-06-27 14:12] LABS: Vitamin D 25-OH, D2 <4 ng/mL; Vitamin D 25-OH, D3 25 ng/mL; Vitamin D 25-OH, Total 25 ng/mL (30-100)
== END 2021-06-22 11:12 | disposition home or self-care (01) ==
LOC: HO.HMGCLDS 11:11
PROVIDERS: Visit Provider Internal Medicine
DX: R10.13 Epigastric pain (principal); M54.9 Dorsalgia, unspecified
CPT/HCPCS: 36415; 80053; 80061; 82306; 84443; 85025

== ENCOUNTER 2021-07-20 13:00 | Outpatient (RCR) | payer OTHER, SELFPAY ==
--- NOTE | 2021-06-27 14:19 | MHC.PT.EP ---
[facility] [place] [facility] [address] Chris Holguin [address] [phone] F: [phone] F: [phone] F: [phone] F: [phone] Physical Therapy Plan of Care Date of Evaluation: Date of Surgery: n/a Diagnosis: dorsalgia Assessment: Patient is a 26 year old female presenting to PT with complaints of pain in her back. Pt reports onset of pain began worsening 2 weeks ago due to insidious onset. She presents today with impairments in pain, lumbar AROM, cervical AROM, increase paraspinal tissue density, hip strength, core strength, posture, and DNF strength. Pt's current occupation is none, with baseline physical activities including ADLs, bending, lifting, caring for 1 year old, and stair negotiation. 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 Clinical presentation today is most consistent with signs and sx associated with back pain that is likely myofascial in nature and pt will benefit from skilled PT to address the following problems and impairments noted upon evaluation: pain, lumbar AROM, cervical AROM, increase paraspinal tissue density, hip strength, core strength, posture, and DNF strength. These problems limit the patient with the following functional activities: ADLs, bending, lifting, and stair negotiation. The prescribed treatment plan of care is medically necessary. Co-morbidities of none were identified and taken into considerations of plan of care. Pt was educated on HEP, role of PT, prognosis, POC. Frequency and Duration: The patient will be seen 2 x week x 4 weeks Short Term Goals: Pt will demonstrate lumbar AROM in available range with min to no pain in 2 weeks. Pt will demonstrate cervical AROM in available range with min to no pain in 2 weeks. Pt will demonstrate improved hip strength by 1/3 MMT for improved lumbopelvic stability in 2 weeks. Pt will demonstrate ability to perform PPT with good TA recruitment in 2 weeks for improved core strength. Pt will be able to perform chin tuck with good DNF recruitment in 2 weeks. Pt will demonstrate improved postural awareness by sitting with biomechanically correct posture without cues throughout session to improve overall postural function in 2 weeks. 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 Pt will demonstrate ability to negotiate stairs with min to no pain in 4 weeks for improved access to her home. Pt will demonstrate ability to lift her child with min to no pain in 4 weeks for improved role as a mother. Pt will demonstrate less than 10% disability on the [place] in 4 weeks for improved overall functional mobility. Treatment Plan: Modalities to reduce pain, spasms and effusion. Manual therapy to restore motion and function. Therapeutic exercise to improve strength and flexibility. Neuromuscular re-education for posture and balance. Therapeutic activities to return to functional activities of daily living. Electronically signed by: Terri Le, PT, DPT, ATC Please sign and return to therapist. Thank you for your referral.
--- NOTE | 2021-08-15 09:23 | MHC.PT.DC ---
[facility] [place] Office [place] Office [place] Office [address] Chris Holguin [address] [phone] F: [phone] F: [phone] F: [phone] F: [phone] Physical Therapy Discharge Report Diagnosis: dorsalgia Date of Surgery: n/a Date of Evaluation: 06/27/21 Date of Discharge: 08/15/21 Treatments to Date: 4 Cancellations to Date: 5 No Shows to Date: 3 Discharge Status: Visit Non-compliance Discharge Summary: Pt failed to comply with [facility] attendance policy and no showed her last 3 appointments. Pt status currently unknown at this time. Electronically signed by: Terri Le, PT, DPT, ATC Please sign and return to therapist. Thank you for your referral.
== END 2021-08-15 09:23 | disposition home or self-care (01) ==
LOC: HO.PTCHIC 13:00
PROVIDERS: PCP Internal Medicine; Visit Provider Internal Medicine
DX: M54.9 Dorsalgia, unspecified (principal)
CPT/HCPCS: 97110; 97140; 97161

== ENCOUNTER 2021-07-28 13:22 | Emergency (ER) | payer OTHER, SELFPAY ==
[2021-07-28 13:47] VITALS: BP 111/62; PULSE 90; RESP 16; TEMP 37.1; O2SAT 99; BMI 24.9
[2021-07-28 14:12] LABS: MANUAL DIFF FLAG NO
[2021-07-28 14:14] LABS: Appearance Urine CLEAR; Color Urine STRAW; Glucose Urine UA NEG (NEG); Leukocyte Esterase Urine TRACE (NEG); Nitrite Urine NEG (NEG); Specific Gravity - Urine <= 1.005 (1.005-1.025); UACC Culture Trigger YES; Urine Blood NEG (NEG); Urine Ketones NEG (NEG); Urine Protein NEG (NEG-TRACE)
[2021-07-28 14:15] LABS: Basophils Percent Auto 0.4 % (0-2); Eosinophils Absolute Auto 0.1 X10*3/uL (0.0-0.4); Eosinophils Percent Auto 0.6 % (0-4); Hematocrit 39.9 % (37.0-47.0); Hemoglobin 13.2 g/dl (12.0-16.0); Imm Gran Abs Auto 0.05 X10*3/uL (0.00-0.03); Imm Gran Pct Auto 0.4 % (0.0-0.4); Lymphocytes Absolute Auto 1.6 X10*3/uL (1.2-4.9); Lymphocytes Percent Auto 14.6 % (20-40); Mean Corpuscular HGB Conc 33.1 g/dl (31.0-35.0); Mean Corpuscular Hemoglobin 27.8 pg (27.0-33.0); Monocytes Absolute Auto 0.7 X10*3/uL (0.1-1.2); Monocytes Percent Auto 6.5 % (2-11); Neutrophils Absolute Auto 8.7 x10*3/uL (2.0-8.3); Neutrophils Percent Auto 77.5 % (45-73); Platelet Count 456 X10*3/uL (160-400); Red Blood Count 4.75 X10*6/uL (4.20-5.50); Red Cell Distribution Width 13.2 % (11.0-16.0); UPreg QC Valid YES; Urine Pregnancy NEGATIVE (NEGATIVE); White Blood Count 11.2 X10*3/uL (4.8-10.8)
[2021-07-28 14:27] LABS: Bacteria Urine 2+ /LPF; Mucus Urine 1+ /LPF; RBC Urine 0 /HPF (0); Squamous Epithelial Cell Urine 2+ /LPF
[2021-07-28 14:31] LABS: Alanine Aminotransferase 9 U/L (0-31); Albumin Level 4.5 g/dL (3.5-5.0); Alkaline Phosphatase 89 U/L (39-117); Anion Gap 8 (12-20); Aspartate Amino Transferase 13 U/L (5-31); Bilirubin Direct 0.2 mg/dL (0.0-0.5); Bilirubin Total 0.5 mg/dL (0.0-1.0); Blood Urea Nitrogen 11 mg/dL (9-16); Calcium 9.9 mg/dL (8.4-10.2); Carbon Dioxide 32 mmol/L (22-29); Chloride 102 mmol/L (96-108); Creatinine Clr Calc Pharmacy 109.9; Estimated Glomerular Filt Rate > 60; Glucose Random 78 mg/dL (60-115); Lipase 32 U/L (8-78); Potassium 4.1 mmol/L (3.3-5.1); Sodium 138 mmol/L (135-145); Total Protein 7.6 g/dL (6.5-8.0)
--- NOTE | 2021-07-28 17:38 | ED.ABDPAIN ---
HPI - Abdominal Pain General Chief Complaint: Abdominal Pain Stated Complaint: abd pain Time Seen by Provider: 07/28/21 16:42 Source: patient Mode of arrival: ambulatory Limitations: language barrier (Estonian speaking only, power washer used) History of Present Illness HPI narrative: 26-year-old female who presents emergency department for evaluation of abdominal pain, nausea, loss of appetite, weakness and fatigue. The patient states that yesterday morning at 04:00 hours she developed abdominal pain. She points to her epigastric area when asked to localize the pain. She states the pain is been intermittent and describes the pain as a ?hard pain ?. The pain is intermittent and is 8 to 9/10 at its worst. She states that the pain is worse after eating food especially food with median it. She states she has had similar pain in the past and takes omeprazole 40 mg once a day. She states she has been compliant with his medication. She states that the pain is occasionally relieved if she drinks angela micah and eats crackers. She states that she has been feeling weak and fatigued since onset of the pain. She states that she has a GI appointment on 08/17/2021. She denied fever. She states over the past 1-2 days she has had rhinorrhea, sore throat, cough, chest pain and shortness of breath. She has associated nausea but no vomiting. She has had no diarrhea. Her last bowel movement was 2 days prior. MD elicited complaint: abdominal pain Pertinent past history: gastritis Onset (ago): day(s) (2) Pain Consistency: intermittent Location: epigastric Severity: severe Pain scale (0-10): 9 Quality: aching Radiation: none Migration to: no migration Exacerbating factors: eating (Food with meat) Relieving factors: other (Crackers, angela) Associated symptoms: nausea Treatments prior to arrival: other (Omeprazole 40 mg daily) Related Data Patient : No Previous Rx's Medication Instructions Recorded omeprazole 40 mg capsule,delayed 40 mg PO ONCE 90 Days #90 cap 06/23/21 release cholecalciferol (vitamin D3) 50 50 mcg PO DAILY 90 Days #90 cap 07/12/21 mcg (2,000 unit) capsule aluminum hydrox-magnesium carb 254 10 ml PO QID PRN #355 ml 07/28/21 mg-237.5 mg/5 mL oral suspension (Gaviscon Extra Strength) Allergies Allergy/AdvReac Type Severity Reaction Status Date / Time Penicillins [PENICILLINS] Allergy Intermediate RASH AND Verified 07/28/21 13:57 VOMITING Review of Systems Review of Systems Yes all other systems are reviewed and are negative [facility] Past Medical History [facility] Narrative: Past medical history: Gastritis, constipation, PID, headaches, past surgical history: Appendectomy. Social history: She denies tobacco, alcohol and drug use. Medical History LGSIL (low grade squamous intraepithelial dysplasia) Surgical History Hx of appendectomy [place] teeth extracted Family History Family History Father History of back problems History of depression History of anxiety Mother Hx of hepatitis Hx of pancreatitis History of mental problems Maternal Grandmother Hx of diabetes mellitus Family hx of hypertension Family/Other Hx of cancer of uterus Social History Social History Housing: Apartment Alcohol intake: never Patient Tobacco Use Status: Never used Tobacco Advance Directives: No Advance Directives Information Provided: No Patient : No Current occupational status: unemployed Sexual orientation: Straight/Heterosexual Gender identity: Female Physical Exam ED Vital Signs: Vital Signs - 24 hr 07/28/21 13:47 Temperature 98.8 F Pulse Rate 90 Respiratory Rate 16 Blood Pressure 111/62 Pulse Oximetry 99 BMI result Body Mass Index 24.9 Const General: cooperative and no acute distress Orientation/consciousness: oriented to person and oriented to place Limitations: no limitations [facility] Head: Yes normal to inspection, Yes normocephalic and Yes atraumatic Ears: external ears normal General nose exam: Normal external nose present Face and sinus: Yes normal facial exam Mouth: Normal oral and palatal mucosa present Throat: Yes posterior oropharynx normal Eyes General: appearance normal, both eyes and all related structures Pupils: Equal, round and reactive pupils present Neck Neck: Yes normal visual inspection, Yes no lymphadenopathy, Yes trachea midline and Yes supple Chest Chest palpation & inspection: normal inspection of the chest and normal palpation of entire chest wall Resp Effort & Inspection: normal respiratory effort and able to speak in complete sentences Auscultation: clear to auscultation bilaterally Cardio Rate: regular rate Rhythm: regular rhythm Heart sounds: S1 normal heart sound present, S2 normal heart sound present and no murmurs GI Inspection: Yes normal to inspection Palpation (GI): Soft to palpation, Tenderness to palpation present (GI) in the epigastrum (Moderate tenderness) and no guarding Auscultation: normal bowel sounds General: Yes no CVA tenderness Back/Spine/Pelvis Back: no CVA tenderness Skin General skin exam: no rashes or lesions noted Neuro General: oriented to person and oriented to place Cranial nerves: Yes CN's II-XII intact bilaterally and Yes Equal, round and reactive pupils present Cognition (Neuro): normal cognition Motor exam (neuro): 5/5 motor strength present throughout Extrem General: Yes normal to inspection Psych Appearance: grossly normal Speech and movement: Normal speech and movement present Affect: normal affect Attitude: cooperative Thought process: Normal thought process present Thought content: Normal thought content present Course Course Course Narrative: 26-year-old female has history of gastritis taking omeprazole 40 mg daily who presents emergency department for evaluation of intermittent epigastric pain that began yesterday morning at 04:00 hours. She had associated nausea, sore throat, cough, shortness of breath dyspnea on exertion. She also has associated fatigue and weakness. Vital signs were normal. Physical examination revealed midepigastric tenderness. Exam was otherwise unremarkable. Laboratory evaluation: CBC revealed an elevated WBC 49515, elevated platelet count of 006001. CMP revealed an elevated CO2 of 32. Lipase was normal at 32. Urinalysis/microscopic was not significant. Urine test was negative. Patient's presentation is consistent with gastritis. She was advised to continue taking omeprazole. She was started on Gaviscon 3 times a day to see if this improves her pain. She was advised to follow-up with PCP in our [facility]. MDM - Abdominal Pain Lab Data Result diagrams: 07/28/21 14:07 07/28/21 14:07 Labs: Lab Results 07/28/21 07/28/21 07/28/21 Range/Units 14:07 14:07 14:07 WBC 11.2 H (4.8-10.8) X10*3/uL RBC 4.75 (4.20-5.50) X10*6/uL Hgb 13.2 (12.0-16.0) g/dl Hct 39.9 (37.0-47.0) % MCV 84.0 (80.0-98.0) fL MCH 27.8 (27.0-33.0) pg MCHC 33.1 (31.0-35.0) g/dl RDW 13.2 (11.0-16.0) % Plt Count 456 H (160-400) X10*3/uL MPV 10.0 (9.4-12.3) fL Immature Gran % (Auto) 0.4 (0.0-0.4) % Neut % (Auto) 77.5 H (45-73) % Lymph % (Auto) 14.6 L (20-40) % [place] % (Auto) 6.5 (2-11) % Eos % (Auto) 0.6 (0-4) % Baso % (Auto) 0.4 (0-2) % Lymph # (Auto) 1.6 (1.2-4.9) X10*3/uL [place] # (Auto) 0.7 (0.1-1.2) X10*3/uL Eos # (Auto) 0.1 (0.0-0.4) X10*3/uL Baso # (Auto) 0.0 (0.0-0.2) X10*3/uL Abs Immat Gran (auto) 0.05 H (0.00-0.03) X10*3/uL Absolute Neuts (auto) 8.7 H (2.0-8.3) x10*3/uL Absolute Nucleated RBC 0.000 (0.0-0.012) X10*3/uL Nucleated RBC % (auto) 0.0 (0.0-0.2) /100WBC Sodium 138 (135-145) mmol/L Potassium 4.1 (3.3-5.1) mmol/L Chloride 102 (96-108) mmol/L Carbon Dioxide 32 H (22-29) mmol/L Anion Gap 8 L (12-20) BUN 11 (9-16) mg/dL Creatinine 0.73 (0.5-1.4) mg/dL Estim Creat Clear Calc 109.9 Estimated GFR > 60 Random Glucose 78 (60-115) mg/dL Calcium 9.9 (8.4-10.2) mg/dL Total Bilirubin 0.5 (0.0-1.0) mg/dL Direct Bilirubin 0.2 (0.0-0.5) mg/dL AST 13 (5-31) U/L ALT 9 (0-31) U/L Alkaline Phosphatase 89 (39-117) U/L Total Protein 7.6 (6.5-8.0) g/dL Albumin 4.5 (3.5-5.0) g/dL Lipase 32 (8-78) U/L Urine Color STRAW Urine Appearance CLEAR Urine pH 7.0 (5.0-8.0) Ur Specific [place] <= 1.005 (1.005-1.025) Urine Protein NEG (NEG-TRACE) MG/DL Urine Glucose (UA) NEG (NEG) MG/DL Urine Ketones NEG (NEG) MG/DL Urine Blood NEG (NEG) Urine Nitrite NEG (NEG) Ur Leukocyte Esterase TRACE H (NEG) Urine RBC 0 (0) /HPF Urine WBC 5-9 H (0-4) /HPF Ur Squamous Epith Cells 2+ /LPF Urine Bacteria 2+ /LPF Urine Mucus 1+ /LPF Urine Test (NEGATIVE) 07/28/21 Range/Units 14:07 WBC (4.8-10.8) X10*3/uL RBC (4.20-5.50) X10*6/uL Hgb (12.0-16.0) g/dl Hct (37.0-47.0) % MCV (80.0-98.0) fL MCH (27.0-33.0) pg MCHC (31.0-35.0) g/dl RDW (11.0-16.0) % Plt Count (160-400) X10*3/uL MPV (9.4-12.3) fL Immature Gran % (Auto) (0.0-0.4) % Neut % (Auto) (45-73) % Lymph % (Auto) (20-40) % [place] % (Auto) (2-11) % Eos % (Auto) (0-4) % Baso % (Auto) (0-2) % Lymph # (Auto) (1.2-4.9) X10*3/uL [place] # (Auto) (0.1-1.2) X10*3/uL Eos # (Auto) (0.0-0.4) X10*3/uL Baso # (Auto) (0.0-0.2) X10*3/uL Abs Immat Gran (auto) (0.00-0.03) X10*3/uL Absolute Neuts (auto) (2.0-8.3) x10*3/uL Absolute Nucleated RBC (0.0-0.012) X10*3/uL Nucleated RBC % (auto) (0.0-0.2) /100WBC Sodium (135-145) mmol/L Potassium (3.3-5.1) mmol/L Chloride (96-108) mmol/L Carbon Dioxide (22-29) mmol/L Anion Gap (12-20) BUN (9-16) mg/dL Creatinine (0.5-1.4) mg/dL Estim Creat Clear Calc Estimated GFR Random Glucose (60-115) mg/dL Calcium (8.4-10.2) mg/dL Total Bilirubin (0.0-1.0) mg/dL Direct Bilirubin (0.0-0.5) mg/dL AST (5-31) U/L ALT (0-31) U/L Alkaline Phosphatase (39-117) U/L Total Protein (6.5-8.0) g/dL Albumin (3.5-5.0) g/dL Lipase (8-78) U/L Urine Color Urine Appearance Urine pH (5.0-8.0) Ur Specific [place] (1.005-1.025) Urine Protein (NEG-TRACE) MG/DL Urine Glucose (UA) (NEG) MG/DL Urine Ketones (NEG) MG/DL Urine Blood (NEG) Urine Nitrite (NEG) Ur Leukocyte Esterase (NEG) Urine RBC (0) /HPF Urine WBC (0-4) /HPF Ur Squamous Epith Cells /LPF Urine Bacteria /LPF Urine Mucus /LPF Urine Test NEGATIVE (NEGATIVE) Discharge Plan Discharge Clinical Impression: Gastritis Patient Disposition: Home, Self-Care Instructions: Gastritis (ED) Additional Instructions: Your blood work today was normal. Your liver tests were normal. Your pancreas tests were normal. Your examination and symptoms are consistent with inflammation of your stomach secondary to too much acid (gastritis). Continue taking your omeprazole as prescribed by your doctor. Take Gaviscon extra-strength, 10 mL(2 tsp) 4 times a day for the next 2 days then as needed for abdominal pain. Follow-up with your doctor in 2 days. Please return to the emergency department if your symptoms get worse or if you develop any symptoms that are concerning to you. Prescriptions: New Gaviscon Extra Strength 254-237.5 mg/5 mL suspension 10 ml PO QID PRN (Reason: dyspepsia) Qty: 355 0RF No Action omeprazole 40 mg capsule,delayed release(DR/EC) 40 mg PO ONCE 90 Days Qty: 90 0RF cholecalciferol (vitamin D3) 50 mcg (2,000 unit) capsule 50 mcg PO DAILY 90 Days Qty: 90 1RF Print Language: Estonian
[2021-07-28 17:56] VITALS: BP 106/63; PULSE 80; RESP 16; O2SAT 97
== END 2021-07-28 18:24 | disposition home or self-care (01) ==
PROVIDERS: Emergency Provider Emergency Medicine Emergency Medical Services; PCP Internal Medicine
DX: K29.70 Gastritis, unspecified, without bleeding (principal); R10.13 Epigastric pain; Z79.899 Other long term (current) drug therapy
CPT/HCPCS: 36415; 80048; 80076; 81001; 81025; 83690; 85025; 87086; 87088; 87186; 99283; 99284

== ENCOUNTER 2021-08-17 11:49 | Outpatient (REF) | payer OTHER, SELFPAY ==
[2021-08-17 14:47] LABS: C Reactive Protein 0.38 mg/dL (< or = 0.50)
[2021-08-18 22:32] LABS: Gliadin Deamidated IgA Ab <1.0 U/mL; Gliadin Deamidated IgG Ab <1.0 U/mL; Transglutaminase Ab IgG <1.0 U/mL; Transglutaminase IgA <1.0 U/mL
== END 2021-08-17 11:50 | disposition home or self-care (01) ==
LOC: HO.LAB 11:49
PROVIDERS: PCP Internal Medicine; Referring Provider Internal Medicine; Visit Provider Nurse Practitioner
DX: R10.13 Epigastric pain (principal); R10.9 Unspecified abdominal pain
CPT/HCPCS: 36415; 86140; 86258; 86364; 99202

== ENCOUNTER 2021-08-18 12:21 | Outpatient (REF) | payer OTHER, SELFPAY | END 2021-08-18 12:22 | disposition home or self-care (01) | LOC: HO.LNP 12:21 | PROVIDERS: Visit Provider Nurse Practitioner | DX: R10.13 Epigastric pain (principal) | CPT/HCPCS: 87338 ==

== ENCOUNTER 2021-09-01 13:08 | Outpatient (REF) | payer OTHER, SELFPAY ==
--- NOTE | ~2021-09-01 | US_ITS ---
EXAMINATION: US ABDOMEN COMPLETE CLINICAL INFORMATION: Epigastric pain. COMPARISON: None TECHNIQUE: Real-time imaging of the abdominal viscera. FINDINGS: PANCREAS: Normal. ABDOMINAL AORTA: The proximal, mid, and distal segments are normal in caliber. INFERIOR VENA CAVA: Visualized portions are normal. LIVER: Normal. The liver is normal in size. The liver contour is normal. Parenchymal echogenicity is normal. No focal hepatic lesion. There is no intrahepatic biliary duct dilatation seen. GALLBLADDER: Normal. The gallbladder is physiologically distended without evidence of stones, sludge, polyps, wall thickening or pericholecystic fluid. COMMON BILE DUCT: Normal in caliber measuring 0.24 cm in diameter. RIGHT KIDNEY: Normal. No hydronephrosis. No renal calculi or focal parenchymal lesions. The kidney measures 10.1 cm in maximum dimension. LEFT KIDNEY: Normal. No hydronephrosis. No renal calculi or focal parenchymal lesions. The kidney measures 10.0 cm in maximum dimension. SPLEEN: Normal. The spleen measures 8.9 cm in maximum dimension. FREE FLUID: None. US/US abdomen complete IMPRESSION: Normal abdominal ultrasound.
== END 2021-09-01 13:09 | disposition home or self-care (01) ==
LOC: HO.US 13:08
PROVIDERS: Visit Provider Nurse Practitioner
DX: R10.13 Epigastric pain (principal)
CPT/HCPCS: 76700

== ENCOUNTER 2021-09-10 12:13 | Emergency (ER) | payer OTHER, SELFPAY ==
[2021-09-10 12:43] VITALS: BP 117/70; PULSE 93; RESP 18; TEMP 36.4; O2SAT 99; BMI 24.3
[2021-09-10 15:24] LABS: COVID-19 Test Negative (Negative)
[2021-09-10 15:25] LABS: IDNOW Serial# 16C4AD1C; Influenza A Negative (Negative); Influenza B2 Negative (Negative)
[2021-09-10 15:39] LABS: Strep A Nucleic Acid Negative (Negative)
--- NOTE | 2021-09-10 15:55 | ED.URI ---
HPI - URI/Sore Throat General Chief Complaint: Upper Respiratory Symptoms Stated Complaint: DIFF BREATHING COUGH CHEST PAIN Time Seen by Provider: 09/10/21 15:40 Source: patient Mode of arrival: ambulatory Limitations: no limitations History of Present Illness HPI Narrative: 26-year-old female presents with upper respiratory symptoms that started yesterday. Patient had cough, sore throat, body aches. She has remote history of asthma but has no inhaler. States she was coughing so much she felt she could not catch her breath. No fevers. Related Data Previous Rx's Medication Instructions Recorded cholecalciferol (vitamin D3) 50 50 mcg PO DAILY 90 Days #90 cap 07/12/21 mcg (2,000 unit) capsule aluminum hydrox-magnesium carb 254 10 ml PO QID PRN #355 ml 07/28/21 mg-237.5 mg/5 mL oral suspension (Gaviscon Extra Strength) nitrofurantoin 100 mg PO BID 7 Days #14 cap 08/01/21 monohydrate/macrocrystals 100 mg capsule (Macrobid) dicyclomine 20 mg tablet 20 mg PO QID 30 Days #120 tab 08/17/21 bismuth subsalicylate 262 mg 2 tab PO QID 14 Days #112 tab 08/22/21 chewable tablet (Bismuth) metronidazole 500 mg tablet 1,000 mg PO BID 14 Days #56 tab 08/22/21 omeprazole 40 mg capsule,delayed 40 mg PO BID 90 Days #180 cap 08/22/21 release tetracycline 500 mg capsule 1,000 mg PO Q12H 14 Days #56 cap 08/22/21 omeprazole 40 mg capsule,delayed 40 mg PO BID #14 cap 08/25/21 release famotidine 40 mg tablet (Pepcid) 40 mg PO BEDTIME #30 tab 08/31/21 albuterol sulfate 90 mcg/actuation 2 puff INHALATION Q4-6H PRN #6.7 g 09/10/21 aerosol inhaler benzonatate 200 mg capsule 200 mg PO TID 5 Days #15 cap 09/10/21 Allergies Allergy/AdvReac Type Severity Reaction Status Date / Time Penicillins [PENICILLINS] Allergy Intermediate RASH AND Verified 08/17/21 12:32 VOMITING Review of Systems Constitutional: Constitutional: Denies body ache(s), Denies chills, Denies fatigue, Denies fever(s), Reports headache(s), Denies malaise and Denies weakness Eyes: Eyes: Denies diplopia ENT: Denies vertigo, Denies dizziness, Denies otalgia, Reports headache(s), Denies mouth pain, Reports post nasal drip, Denies sinus pain, Denies sinus pressure, Reports sore throat and Denies throat swelling Cardiovascular: Cardiovascular: Denies chest pain, Denies syncope, Denies leg edema, Denies lightheadedness, Denies Loss of Consciousness, Denies palpitations and Denies dyspnea Respiratory: Respiratory: Reports chest congestion, Reports cough and Denies dyspnea Gastrointestinal: Gastrointestinal: Denies abdominal pain, Denies hematochezia, Denies constipation, Denies diarrhea and Denies vomiting Musculoskeletal: Musculoskeletal: Reports myalgias Neurologic: Denies confusion, Denies vertigo, Denies dizziness, Denies syncope, Reports headache(s) and Denies weakness Psychiatric: Psychiatric: Denies anxiety, Denies confusion and Denies depression Endocrine: Endocrine: Denies fatigue and Denies palpitations Allergic/Immunologic: Allergic/Immunologic: Denies throat swelling PMFSH Past Medical History Medical History Asthma Constipation by delayed colonic transit LGSIL (low grade squamous intraepithelial dysplasia) Surgical History Hx of appendectomy [place] teeth extracted Family History Family History Father History of back problems History of depression History of anxiety Mother Hx of hepatitis Hx of pancreatitis History of mental problems Maternal Grandmother Hx of diabetes mellitus Family hx of hypertension Family/Other Hx of cancer of uterus Social History Social History Housing: Apartment Alcohol intake: never Patient Tobacco Use Status: Never used Tobacco Advance Directives: No Advance Directives Information Provided: No Patient : No Current occupational status: unemployed Sexual orientation: Straight/Heterosexual Gender identity: Female Physical Exam Vital Signs: Vital Signs: Last Vital Signs Temp 97.5 F 09/10/21 12:43 Pulse 93 09/10/21 16:16 Resp 20 09/10/21 16:16 BP 117/70 09/10/21 12:43 Pulse Ox 99 09/10/21 12:43 BMI result Body Mass Index 24.3 Const: General: No confusion Nutritional Appearance: well nourished Orientation/consciousness: No confusion Limitations: no limitations HEENT: Head: Yes normal to inspection, Yes normocephalic and Yes atraumatic Ears: hearing grossly normal bilaterally, external ears normal, TM's normal bilaterally and EAC's normal General nose exam: Normal external nose present Face and sinus: Yes normal facial exam and Yes sinuses nontender Mouth: Normal oral and palatal mucosa present Throat: Yes postnasal drainage Eyes: Conjunctivae: conjunctivae normal Pupils: Equal, round and reactive pupils present EOM: EOMs intact bilaterally Neck: Neck: Yes full ROM, Yes no lymphadenopathy and Yes supple Resp: Effort & Inspection: normal respiratory effort and able to speak in complete sentences Auscultation: clear to auscultation bilaterally, no crackles, no rales, no rhonchi, no wheezes and diminished lung sounds Cardio: Rate: regular rate Rhythm: regular rhythm Heart sounds: S1 normal heart sound present and S2 normal heart sound present GI: Inspection: Yes normal to inspection Palpation (GI): Soft to palpation, nontender, no guarding and not rigid Percussion: Yes normal to percussion Auscultation: normal bowel sounds Skin: General skin exam: no rashes or lesions noted Neuro: General: No confusion Cranial nerves: Yes Equal, round and reactive pupils present Extrem: General: Yes normal to inspection and Yes full ROM Psych: Appearance: grossly normal Affect: normal affect Attitude: cooperative Thought process: Normal thought process present Course Course Course Narrative: 26-year-old female presents for upper respiratory symptoms began yesterday. Exam, patient has mildly diminished breath sounds that resolve after given albuterol treatment. Patient is negative for strep, flu, COVID. Prescribed Tessalon Perles and albuterol inhaler, counseled patient to push fluids, alternate Tylenol with ibuprofen, use salt water gargles for sore throat, call PCP for follow-up appointment MDM - URI/Sore Throat Lab Data Labs: Lab Results 09/10/21 09/10/21 09/10/21 Range/Units 14:45 14:45 15:24 COVID-19 ([facility]) Negative (Negative) COVID-19 Clin Com See Note Influenza Type A ([facility]) Negative (Negative) Influenza Type B ([facility]) Negative (Negative) Influenza A & B Note See Note S. pyogenes GrpA [facility] Negative (Negative) Discharge Plan Discharge Clinical Impression: Upper respiratory infection, viral, Acute bronchospasm Patient Disposition: Home, Self-Care Instructions: Upper Respiratory Infection (ED), Bronchospasm (ED) Additional Instructions: Please call your primary care provider for follow-up visit from today's emergency room visit. Please use your albuterol inhaler, 2 puffs every 4 hours while you are awake for the next 4 5 days. Please take the benzonatate pills, these are for coughing as we discussed. Please use salt water gargles for sore throat. Please alternate Tylenol and ibuprofen for body aches. Please drink plenty of fluids. Please return to emergency room if you have chest pain, shortness of breath, fevers, or any other new or concerning symptoms. Llame a winter proveedor de atenci?n primaria para timi visita de seguimiento de la visita a la arlene de emergencias de hoy. Utilice winter inhalador de albuterol, 2 inhalaciones cada 4 horas mientras est? despierto reed los pr?ximos 4 5 d?as. Por favor, tome las pastillas de benzonatato, estas son para la tos susan ya comentamos. Utilice g?rgaras de agua salada para el dolor de garganta. Alterne Tylenol e ibuprofeno para los berenice corporales. Por favor, christen muchos l?quidos. Regrese a la arlene de emergencias si tiene dolor en el pecho, dificultad para respirar, fiebre o cualquier otro s?ntoma nuevo o preocupante. Prescriptions: New albuterol sulfate 90 mcg/actuation HFA aerosol inhaler 2 puff inhalation Q4-6H PRN (Reason: shortness of breath or wheezing) Qty: 6.7 0RF benzonatate 200 mg capsule 200 mg PO TID 5 Days Qty: 15 0RF No Action tetracycline 500 mg capsule 1,000 mg PO Q12H 14 Days Qty: 56 0RF metronidazole 500 mg tablet 1,000 mg PO BID 14 Days Qty: 56 0RF bismuth subsalicylate [Bismuth] 262 mg tablet,chewable 2 tab PO QID 14 Days Qty: 112 0RF omeprazole 40 mg capsule,delayed release(DR/EC) 40 mg PO BID 90 Days Qty: 180 0RF omeprazole 40 mg capsule,delayed release(DR/EC) 40 mg PO BID Qty: 14 0RF famotidine [Pepcid] 40 mg tablet 40 mg PO BEDTIME Qty: 30 0RF Gaviscon Extra Strength 254-237.5 mg/5 mL suspension 10 ml PO QID PRN (Reason: dyspepsia) Qty: 355 0RF nitrofurantoin monohyd/m-cryst [Macrobid] 100 mg capsule 100 mg PO BID 7 Days Qty: 14 0RF Rx Instructions: must administer with a meal/food cholecalciferol (vitamin D3) 50 mcg (2,000 unit) capsule 50 mcg PO DAILY 90 Days Qty: 90 1RF dicyclomine 20 mg tablet 20 mg PO QID 30 Days Qty: 120 3RF Interventions: ED Discharge Assessment Last Done: 09/10/21 16:47 Discharge Date/Time: 09/10/21 16:47 Print Language: Turkish
[2021-09-10 16:16] VITALS: PULSE 93; RESP 20; O2SAT 99
[2021-09-10] MEDS: Albuterol Sulfate 90 MCG 8 GM INHALER 2 PUFF INHALE (16:16)
== END 2021-09-10 16:47 | disposition home or self-care (01) ==
PROVIDERS: Emergency Provider Emergency Medicine; PCP Internal Medicine
DX: J06.9 Acute upper respiratory infection, unspecified (principal); J98.01 Acute bronchospasm; Z20.822 Contact with and (suspected) exposure to COVID-19
CPT/HCPCS: 36415; 87502; 87635; 87651; 94640; 94664; 99283; 99284

== ENCOUNTER → 2021-11-09 16:17 | Outpatient (BNVA) | payer OTHER, SELFPAY | PROVIDERS: PCP Internal Medicine; Referring Provider Internal Medicine; Visit Provider Nurse Practitioner | DX: K29.70 Gastritis, unspecified, without bleeding (principal); A04.8 Other specified bacterial intestinal infections; R10.9 Unspecified abdominal pain | CPT/HCPCS: 99212 ==